=== PATIENT | female | born 1980 | race Caucasian/White ===

== ENCOUNTER 2018-10-18 13:59 | Inpatient (IN) | payer BC ==
[2018-10-18] MEDS ORDERED: TERBUTALINE 1 MG/ML VIAL SQ PRN (15:26)
[2018-10-18] MEDS ORDERED: CARBOPROST TROMETHAMINE 250 MCG/ML 1 ML AMP IM PRN (15:26)
[2018-10-18] MEDS ORDERED: METHYLERGONOVINE 0.2 MG/ML 1 ML AMP IM PRN (15:26)
[2018-10-18] MEDS ORDERED: OXYTOCIN 10 UNIT/ML 1 ML VIAL IM PRN (15:26)
[2018-10-18] MEDS ORDERED: LIDOCAINE 0.5% (PF) 5 MG/ML (50 ML SDV) SQ PRN (15:26)
[2018-10-18] MEDS ORDERED: LACTATED RINGERS 1,000 ML IV SCH (15:30)
--- NOTE | 2018-10-18 15:32 | P.HPOB ---
History of Present Illness H&P Date: 10/18/18 Chief Complaint: IUP @ 39 3/7 weeks, Active labor This is a pleasant 38-year-old 4 para 2011 at 39-3/7 weeks with an estimated due date of 10/22 based on last menstrual period and consistent with 20 week ultrasound. Patient is noted to be advanced maternal age but denied genetic screening in the first trimester. Patient has had routine care with Dr. Fang since the first trimester. Patient presented to labor and delivery with complaints of regular painful contractions about 5 minutes apart. Initially she was 2-3 and progressed to 4 cm and was admitted to labor and delivery. On blood work blood type of A+, rubella immune, RPR nonreactive, hepatitis B surface antigen negative, HIV negative normal anatomy scan was completed and she passed her 1 hour Glucola on 07/17 with a result of 139 and she received her T Dap vaccination and 08/07/18. Group beta strep negative on 09/17/18 Review of Systems Constitutional: Denies chills, Denies fatigue, Denies fever Ears, nose, mouth and throat: Denies headache Cardiovascular: Reports leg edema, Denies shortness of breath Respiratory: Denies dyspnea Gastrointestinal: Denies constipation, Denies diarrhea, Denies nausea, Denies vomiting Genitourinary: Reports Past Medical History History of Any Multi-Drug Resistant Organisms: None Reported Smoking Status: Never smoker Medications and Allergies Home Medications Medication Instructions Recorded Confirmed Type No Known Home Medications 10/18/18 10/18/18 History Allergies Allergy/AdvReac Type Severity Reaction Status Date / Time No Known Allergies Allergy Verified 10/18/18 14:21 Exam Osteopathic Statement: *. No significant issues noted on an osteopathic structural exam other than those noted in the History and Physical/Consult. Vital Signs Temp Pulse Resp BP 10/18/18 14:38 97.6 F 109 H 16 119/74 Intake and Output 10/18/18 10/18/18 10/18/18 06:59 14:59 22:59 Other: Weight 58.06 kg Tardive physical exam is performed on this date and hospital product specialist a well-nourished well-developed female in no acute distress. She exhibits nonlabored breathing and lungs are clear auscultation bilaterally heart is a regular rate and rhythm abdomen is surgery gravid and appropriate for gestational age. On initial cervical exam she progressed to 4/70/-2 per RN vertex presentation, heart tones were noted to be reactive she is nicholas every 5 minutes with the patient rating them and 8 to 9 on the pain scale. Assessment and Plan (1) Term Current Visit: Yes Status: Acute Code(s): Z34.80 - ENCOUNTER FOR SUPRVSN OF NORMAL , UNSP TRIMESTER SNOMED Code(s): 29401138 (2) Active labor Current Visit: Yes Status: Acute Code(s): RZQ9703 - SNOMED Code(s): 17699146 Plan: We will admit to labor and delivery plan amniotomy. she is uncomfortable and was offered pain medication such as Stadol/epidural which she has refused at this time. We will anticipate spontaneous vaginal delivery later today.
[2018-10-18 15:41] LABS: Basophils % (A) 0 %; Eosinophils # (A) 0.1 k/uL (0-0.7); Eosinophils % (A) 1 %; HCT 39.8 % (34.0-46.0); HGB 13.1 gm/dL (11.4-16.0); Lymphocytes # (A) 2.2 k/uL (1.0-4.8); Lymphocytes % (A) 18 %; MCH 25.6 pg (25.0-35.0); MCV 77.7 fL (80.0-100.0); Mean Platelet Volume 7.3; Monocytes # (A) 0.4 k/uL (0-1.0); Monocytes % (A) 3 %; Neutrophils # (A) 9.3 k/uL (1.3-7.7); Neutrophils % (A) 76 %; Platelet Count 219 k/uL (150-450); RBC 5.13 m/uL (3.80-5.40); RDW 14.6 % (11.5-15.5); WBC 12.2 k/uL (3.8-10.6)
[2018-10-18 16:03] VITALS: BMI 22.6
[2018-10-18] MEDS ORDERED: BUTORPHANOL 1 MG/ML 1 ML VIAL IV PRN (16:38)
[2018-10-18] MEDS ORDERED: diphenhydrAMINE 50 MG/ML 1 ML VIAL IVP PRN ×2 (17:51)
[2018-10-18] MEDS ORDERED: IBUPROFEN 600 MG TAB PO PRN (17:51)
[2018-10-18] MEDS ORDERED: diphenhydrAMINE 50 MG CAP PO PRN (17:51)
[2018-10-18] MEDS ORDERED: LANOLIN CREAM 5 GM TUBE TOPICAL PRN (17:51)
[2018-10-18] MEDS ORDERED: SIMETHICONE 80 MG CHEWABLE PO PRN (17:51)
[2018-10-18] MEDS ORDERED: ACETAMINOPHEN TAB 325 MG TAB PO PRN (17:51)
[2018-10-18] MEDS ORDERED: WITCH HAZEL 1 EACH MED..PAD TOPICAL PRN (17:51)
[2018-10-18] MEDS ORDERED: BENZOCAINE/MENTHOL SPRAY 1 GM/SPRAY AEROSOL TOPICAL PRN (17:51)
[2018-10-18] MEDS ORDERED: ZOLPIDEM 5 MG TAB PO PRN (17:51)
[2018-10-18] MEDS ORDERED: HYDROCORTISONE 2.5% RECTAL CREAM 30 GM TUBE RECTAL PRN (17:51)
[2018-10-18] MEDS ORDERED: diphenhydrAMINE 25 MG CAP PO PRN (17:51)
--- NOTE | 2018-10-18 17:51 | P.PROBDLV ---
Vaginal Delivery Note - . Vaginal Delivery Note: This is a 38-year-old 4 para 2011 presented to labor and delivery in active labor at 39-3/7 weeks of gestation. Patient was admitted to labor and delivery amniotomy was performed and clear fluid was obtained. Patient progressed throughout labor getting a half a dose of Stadol for discomfort progressed to complete began pushing and had normal spontaneous vaginal delivery of a viable male infant at 1741, weight of 16 lbs. 15 oz. with Apgars of 9 and 9 at one and 5 minutes respectively. Infant did have a loose nuchal that was delivered through. On inspection the patient's vaginal vault a small periurethral laceration was noted and no bleeding was appreciated. Estimated blood loss for this delivery proximally 300 mL, uterus was noted to be firm and below the umbilicus after delivery. Patient and infant tolerated delivery well and are resting comfortably.
[2018-10-18] MEDS ORDERED: OXYTOCIN 20 UNITS/1000 ML NS 1,000 ML IV SCH (18:00)
[2018-10-18 19:12] VITALS: RESP 16
[2018-10-18] MEDS: SENNOSIDES-DOCUSATE SODIUM 1 EACH TAB PO SCH (22:13)
[2018-10-19 07:43] LABS: Basophils % (A) 0 %; Eosinophils % (A) 0 %; HCT 31.6 % (34.0-46.0); HGB 10.5 gm/dL (11.4-16.0); Lymphocytes # (A) 2.2 k/uL (1.0-4.8); Lymphocytes % (A) 16 %; MCH 25.8 pg (25.0-35.0); MCHC 33.1 g/dL (31.0-37.0); MCV 77.8 fL (80.0-100.0); Mean Platelet Volume 7.6; Monocytes # (A) 0.5 k/uL (0-1.0); Monocytes % (A) 4 %; Neutrophils # (A) 11.3 k/uL (1.3-7.7); Neutrophils % (A) 79 %; Platelet Count 186 k/uL (150-450); RBC 4.06 m/uL (3.80-5.40); RDW 14.5 % (11.5-15.5); WBC 14.4 k/uL (3.8-10.6)
[2018-10-19] MEDS: SENNOSIDES-DOCUSATE SODIUM 1 EACH TAB PO SCH (08:08)
--- NOTE | 2018-10-19 08:14 | P.DS ---
Providers Date of admission: 10/18/18 15:22 Expected date of discharge: 10/19/18 Attending physician: Eveline Fang Primary care physician: Eveline Fang [facility] Course: This is a 38-year-old female 3 para 2002 EDC 10/22/2018 at 39-3/7 weeks ' gestation. Patient presented from home in active spontaneous labor. was unremarkable, group B strep cultures negative, rubella status immune. Please see dictated history and physical for details. Patient progressed through spontaneous labor and gave to a liveborn male with scores of 9 and 9 at one and 5 minutes respectively. There was a nuchal cord 1 as well as a body cord 1. Infant weighed 6 lbs. 15 oz. or 3155 g. Please see dictated delivery note for details. The patient is doing well this morning. She is declining option for circumcision. She does state that her tailbone was sore, but palliated by ibuprofen. Lochia rubra is moderate. She is breast-feeding and requesting a prescription for breast pump, this has been provided. Patient is judged to be in good condition for discharge home. She will follow-up with me in the office in 6 weeks. I have reminded her no intercourse, tampons or douching. She will use [id number] ibuprofen, 600 mg, every 6 hours as needed for pain. She is contemplating the use of an IUD and we'll discuss this further in the office. I've asked her to call with any fevers shakes or chills, foul smelling or copious lochia, with the passage of large blood clots, with any difficulties breast-feeding, with any pain not alleviated by [id number] Motrin. She is to call with any issues or concerns, director of medicare will see the as recommended. Patient Condition at Discharge: Good Plan - Discharge Summary New Discharge Prescriptions: No Action No Known Home Medications Discharge Medication List No Known Home Medications 10/18/18 [History] Follow up Appointment(s)/Referral(s): Eveline Fang MD [Primary Care Provider] - 6 Weeks Discharge Disposition: HOME SELF-CARE
[2018-10-19 16:12] VITALS: BP 100/64; PULSE 109; TEMP 98.7
== END 2018-10-19 17:59 | disposition home or self-care (01) | DRG 807 ==
LOC: FBPOP 13:59 → 4FBP 15:22
PROVIDERS: ADMIT Obstetrics & Gynecology; ATTEND Obstetrics & Gynecology
PROC: 10E0XZZ Delivery of Products of Conception, External Approach (ICD-10-PCS; principal; 2018-10-18)
PROC: 0UQMXZZ Repair Vulva, External Approach (ICD-10-PCS; 2018-10-18)
DX: O69.81X0 Labor and delivery complicated by cord around neck, without compression, not applicable or unspecified (principal); Z37.0 Single live birth; O71.82 Other specified trauma to perineum and vulva; Z3A.39 39 weeks gestation of pregnancy
CPT/HCPCS: 59025; 85025; 99213